=== PATIENT | female | born 1950 | race African-American/Black ===

== ENCOUNTER → 2017-06-27 | Outpatient (CLI) | payer MEDICARE, OTHER ==
[2017-06-27 10:15] LABS: ABSOLUTE BASOPHILS # (AUTO) 0.1 10^3/uL (0.0-0.2); ABSOLUTE EOSINOPHILS # (AUTO) 0.2 10^3/uL (0.0-0.6); ABSOLUTE LYMPHOCYTES (AUTO) 1.9 10^3/uL (0.5-4.7); ABSOLUTE MONOCYTES (AUTO) 0.6 10^3/uL (0.1-1.4); ABSOLUTE NEUT (AUTO) 2.5 10^3/uL (1.7-8.2); BASOPHILS % (AUTO) 1.2 % (0-2); EOSINOPHILS % (AUTO) 3.4 % (0-6); HEMATOCRIT 42.1 % (36.0-47.0); HEMOGLOBIN 14.2 g/dL (12.0-15.5); HGB HCT DIFFERENCE 0.5; MEAN CORPUSCULAR HGB CONC 33.7 g/dL (32.0-36.0); MEAN CORPUSCULAR VOLUME 83 fl (80-97); RED BLOOD COUNT 5.06 10^6/uL (3.72-5.28); RED CELL DISTRIBUTION WIDTH 13.6 % (11.5-14.0); SEGMENTED NEUTROPHILS % (AUTO) 47.4 % (42-78); WHITE BLOOD COUNT 5.4 10^3/uL (4.0-10.5)
[2017-06-27 10:24] LABS: APPEARANCE,URINE CLEAR; BILIRUBIN,URINE NEGATIVE (NEGATIVE); GLUCOSE, URINE NEGATIVE (NEGATIVE); KETONES,URINE NEGATIVE (NEGATIVE); LEUKOCYTE ESTERASE,URINE NEGATIVE (NEGATIVE); NITRITE,URINE NEGATIVE (NEGATIVE); PROTEIN,URINE NEGATIVE (NEGATIVE); URINE SPECIFIC GRAVITY 1.012; UROBILINOGEN,URINE NEGATIVE mg/dL (<2.0)
[2017-06-27 10:48] LABS: ALANINE AMINOTRANSFERASE 28 U/L (9-52); ALBUMIN 3.9 g/dL (3.5-5.0); ALKALINE PHOSPHATASE 135 U/L (38-126); ANION GAP 12 (5-19); ASPARTATE AMINO TRANSFERASE 20 U/L (14-36); BILIRUBIN,DIRECT 0.4 mg/dL (0.0-0.4); BILIRUBIN,TOTAL 0.9 mg/dL (0.2-1.3); BLOOD UREA NITROGEN 18 mg/dL (7-20); CALCIUM 9.4 mg/dL (8.4-10.2); CARBON DIOXIDE 29 mmol/L (22-30); CHLORIDE 102 mmol/L (98-107); CREATININE RESULT 0.99 mg/dL (0.52-1.25); Direct HDL 52 mg/dL (>40); GLUCOSE 109 mg/dL (75-110); SODIUM 143.3 mmol/L (137-145); TOTAL PROTEIN 7.8 g/dL (6.3-8.2); TRIGLYCERIDES 71 mg/dL (<150)
[2017-06-27 11:02] LABS: DIRECT LDL 147 mg/dL (<100)
[2017-06-27 11:30] LABS: THYROID STIMULATING HORMONE 1.31 uIU/mL (0.47-4.68)
== END ==
LOC: OD 09:06
PROVIDERS: ATTEND Internal Medicine
DX: I10 Essential (primary) hypertension (principal); E78.5 Hyperlipidemia, unspecified; R31.9 Hematuria, unspecified; G47.00 Insomnia, unspecified; N30.91 Cystitis, unspecified with hematuria
CPT/HCPCS: 36415; 80053; 80061; 81001; 84439; 84443; 84550; 85025; 87086

== ENCOUNTER → 2017-10-18 | Outpatient (CLI) | payer MEDICARE, OTHER ==
--- NOTE | 2017-10-18 14:24 | RADIOLOGY REPORT (SQ) ---
EXAM DESCRIPTION: CHEST PA/LATERAL COMPLETED DATE/TIME: 10/18/2017 2:04 pm REASON FOR STUDY: PNEUMOTHORAX, UNSPECIFIED COMPARISON: None. EXAM PARAMETERS: NUMBER OF VIEWS: two views TECHNIQUE: Digital Frontal and Lateral radiographic views of the chest acquired. RADIATION DOSE: NA LIMITATIONS: none FINDINGS: LUNGS AND PLEURA: No opacities, masses or pneumothorax. No pleural effusion. MEDIASTINUM AND HILAR STRUCTURES: No masses or contour abnormalities. HEART AND VASCULAR STRUCTURES: Heart normal size. No evidence for failure. BONES: No acute findings. HARDWARE: None in the chest. Hardware in the right shoulder. OTHER: No other significant finding. IMPRESSION: NO SIGNIFICANT RADIOGRAPHIC FINDING IN THE CHEST. TECHNICAL DOCUMENTATION: JOB ID: [id number] [employer]- All Rights Reserved Reading location - IP/workstation name: [email or web address]
== END ==
LOC: OD 13:41
PROVIDERS: ATTEND Surgery
DX: J93.9 Pneumothorax, unspecified (principal)
CPT/HCPCS: 71046

== ENCOUNTER → 2018-02-13 | Outpatient (CLI) | payer MEDICARE, OTHER ==
--- NOTE | 2018-02-13 13:01 | RADIOLOGY REPORT (SQ) ---
EXAM DESCRIPTION: CT ABD/PELVIS NO ORAL OR IV COMPLETED DATE/TIME: 02/13/2018 12:42 pm REASON FOR STUDY: CALCULUS OF KIDNEY N20.0 CALCULUS OF KIDNEY COMPARISON: CT abdomen pelvis 04/08/2016, 08/20/2014 TECHNIQUE: CT scan of the abdomen and pelvis performed without intravenous or oral contrast. Images reviewed with lung, soft tissue, and bone windows. Reconstructed coronal and sagittal MPR images revi ewed. All images stored on PACS. All CT scanners at this facility use dose modulation, iterative reconstruction, and/or weight based d osing when appropriate to reduce radiation dose to as low as reasonably achievable (ALARA). [facility]: Dose Right [facility]: CareDose [facility]: Dose Right [facility]: Teradose 4D [facility]: Smart Technologies RADIATION DOSE: CT Rad equipment meets quality standard of care and radiation dose reduction techniq ues were employed. CTDIvol: 15.8 mGy. DLP: 812 mGy-cm.mGy. LIMITATIONS: None. FINDINGS: LOWER CHEST: Small hiatal hernia. Lung bases are clear. NON-CONTRASTED LIVER, SPLEEN, ADRENALS: Evaluation limited by lack of IV contrast. No identified sign ificant masses. PANCREAS: No masses. No peripancreatic inflammatory changes. GALLBLADDER: No identified stones by CT criteria. No inflammatory changes to suggest cholecystitis. RIGHT KIDNEY AND URETER: No suspicious masses. Assessment limited by lack of IV contrast. No signif icant calcifications. No hydronephrosis or hydroureter. LEFT KIDNEY AND URETER: No suspicious masses. Assessment limited by lack of IV contrast. No signifi cant calcifications. No hydronephrosis or hydroureter. AORTA AND RETROPERITONEUM: No aneurysm. No retroperitoneal masses or adenopathy. BOWEL AND PERITONEAL CAVITY: No obvious masses or inflammatory changes. No free fluid. APPENDIX: Normal. PELVIS, BLADDER, AND ABDOMINAL WALL:No abnormal masses. No free fluid. Bladder normal. Post hysterec carly and pelvic lymph node dissection. BONES: Degenerative changes lower lumbar spine OTHER: No other significant finding. IMPRESSION: No CT evidence of obstructive urinary stones. COMMENT: Quality ID # 436: Final reports with documentation of one or more dose reduction techniques (e.g., Automated exposure control, adjustment of the mA and/or kV according to patient size, use of iterative reconstruction technique) TECHNICAL DOCUMENTATION: JOB ID: [id number] [employer]- All Rights Reserved Reading location - IP/workstation name: [email or web address]
== END ==
LOC: RAD 12:25
PROVIDERS: ATTEND Internal Medicine
DX: N20.0 Calculus of kidney (principal)
CPT/HCPCS: 74176

== ENCOUNTER → 2018-04-04 | Outpatient (CLI) | payer MEDICARE, OTHER ==
--- NOTE | 2018-04-23 13:35 | WOMENS IMAGING REPORT ---
EXAM DESCRIPTION: 3D DX MAMMO RIGHT UNILAT COMPLETED DATE/TIME: 04/06/2018 9:23 am REASON FOR STUDY: SCREENING MAMMO COMPARISON: None available TECHNIQUE: Standard craniocaudal and mediolateral oblique images of the the right breast recorded us ing digital acquisition and breast tomosynthesis. Post left mastectomy in 2011 LIMITATIONS: None. FINDINGS: BREAST: Right MASSES: No suspicious masses. CALCIFICATIONS: No new or suspicious calcifications. ARCHITECTURAL DISTORTION: Postsurgical changes from right breast reduction. DEVELOPING DENSITY: None. ASYMMETRY: None noted. OTHER: No other significant findings. Read with the assistance of CAD. .[facility] - R2 Cenova Version 1.3 .[facility] Imaging - R2 Cenova Version 1.3 .[facility] Imaging - R2 Cenova Version 2.4 .[facility] - R2 Cenova Version 2.4 .[facility] - R2 Metallurgical Technician Version 9.2 IMPRESSION: No mammographic/ tomosynthesis evidence for malignancy right breast BREAST DENSITY: b. There are scattered areas of fibroglandular density. BIRAD: 2 Benign findings. RECOMMENDATION: RECOMMENDED FOLLOW UP: Please continue right breast screening tomosynthesis in 2018 SPECIFIC INTERVENTION/IMAGING/CONSULTATION RECOMMENDED:No additional intervention/ imaging/consultati on needed at this time. COMMUNICATION:The negative/benign results were communicated to the patient. COMMENT: The patient has been notified of the results by letter per SA requirements. Additional no tification policies are in place for contacting patient with suspicious or incomplete findings. Quality ID #225: The [employer] recommends an annual screening mammogram for women aged 40 years or over. This facility utilizes a reminder system to ensure that all patients receive reminder letters, and/or direct phone calls for appointments. This includes reminders for routine scr eening mammograms, diagnostic mammograms, or other Breast Imaging Interventions when appropriate. Th is patient will be placed in the appropriate reminder system. The [employer] (ACR) has developed recommendations for screening MRI of the breast s in certain patient populations, to be used in conjunction with mammography. Breast MRI surveillanc e may be appropriate for women with more than 20% lifetime risk of developing breast cancer as deter mined by genetic testing, significant family history of the disease, or history of mantle radiation f or Hodgkins Disease. ACR Practice Guidelines 2008. DBT Technology DBT is a type of tomographic mammography. With conventional mammography, overlapping breast tissue ma y make lesions difficult to detect, even with good compression. DBT uses an x-ray tube that rotates a round the breast, taking images at different angles. These images are then combined to create thin sl ices of the breast that the radiologist can view as a 3D reconstruction. The tic unit can perform full-field digital mammograms (2D imaging); or DBT (3D imaging); or both, in a combination mode that quickly performs both the mammogram and the tomosynthesis scan while the breast is still compressed. PQRS 6045F: Fluoroscopic imaging is not utilized for breast tomosynthesis. TECHNICAL DOCUMENTATION: FINDING NUMBER: (1) ASSESSMENT: (1) JOB ID: [id number] [employer]- All Rights Reserved Reading location - IP/workstation name: [email or web address]
== END ==
LOC: WI 14:00
PROVIDERS: ATTEND Internal Medicine
DX: Z12.31 Encounter for screening mammogram for malignant neoplasm of breast (principal)
CPT/HCPCS: 77065; G0279

== ENCOUNTER → 2018-05-30 | Outpatient (CLI) | payer MEDICARE, OTHER ==
--- NOTE | 2018-05-30 14:29 | RADIOLOGY REPORT (SQ) ---
EXAM DESCRIPTION: CT ABD/PELVIS NO ORAL OR IV COMPLETED DATE/TIME: 05/30/2018 2:16 pm REASON FOR STUDY: HEMATURIA (R31.9) R31.9 HEMATURIA, UNSPECIFIED COMPARISON: 02/13/2018 TECHNIQUE: CT scan of the abdomen and pelvis performed without intravenous or oral contrast. Images reviewed with lung, soft tissue, and bone windows. Reconstructed coronal and sagittal MPR images revi ewed. All images stored on PACS. All CT scanners at this facility use dose modulation, iterative reconstruction, and/or weight based d osing when appropriate to reduce radiation dose to as low as reasonably achievable (ALARA). [facility]: Dose Right [facility]: CareDose [facility]: Dose Right [facility]: Teradose 4D [facility]: Smart Technologies RADIATION DOSE: CT Rad equipment meets quality standard of care and radiation dose reduction techniq ues were employed. CTDIvol: 15.8 mGy. DLP: 754 mGy-cm.mGy. LIMITATIONS: None. FINDINGS: LOWER CHEST: No significant findings. No nodules or infiltrates. NON-CONTRASTED LIVER, SPLEEN, ADRENALS: Evaluation limited by lack of IV contrast. No identified sign ificant masses. PANCREAS: No masses. No peripancreatic inflammatory changes. GALLBLADDER: No identified stones by CT criteria. No inflammatory changes to suggest cholecystitis. RIGHT KIDNEY AND URETER: No suspicious masses. Assessment limited by lack of IV contrast. No signif icant calcifications. No hydronephrosis or hydroureter. LEFT KIDNEY AND URETER: No suspicious masses. Assessment limited by lack of IV contrast. No signifi cant calcifications. No hydronephrosis or hydroureter. AORTA AND RETROPERITONEUM: No aneurysm. No retroperitoneal masses or adenopathy. BOWEL AND PERITONEAL CAVITY: No obvious masses or inflammatory changes. No free fluid. APPENDIX: Normal. PELVIS, BLADDER, AND ABDOMINAL WALL:Uterus is absent. Urinary bladder is normal. No masses. BONES: No significant findings. OTHER: No other significant finding. IMPRESSION: NO SIGNIFICANT OR ACUTE PROCESS IN THE ABDOMEN OR PELVIS. COMMENT: Quality ID # 436: Final reports with documentation of one or more dose reduction techniques (e.g., Automated exposure control, adjustment of the mA and/or kV according to patient size, use of iterative reconstruction technique) TECHNICAL DOCUMENTATION: JOB ID: [id number]- All Rights Reserved Reading location - IP/workstation name: [email or web address]
== END ==
LOC: RAD 14:01
PROVIDERS: ATTEND Internal Medicine
DX: R31.9 Hematuria, unspecified (principal)
CPT/HCPCS: 74176

== ENCOUNTER → 2018-09-28 | Outpatient (CLI) | payer MEDICARE, OTHER ==
[2018-09-28 10:01] LABS: ABSOLUTE EOSINOPHILS # (AUTO) 0.1 10^3/uL (0.0-0.6); ABSOLUTE LYMPHOCYTES (AUTO) 2.2 10^3/uL (0.5-4.7); ABSOLUTE MONOCYTES (AUTO) 0.7 10^3/uL (0.1-1.4); ABSOLUTE NEUT (AUTO) 2.5 10^3/uL (1.7-8.2); BASOPHILS % (AUTO) 0.6 % (0-2); EOSINOPHILS % (AUTO) 1.8 % (0-6); HEMATOCRIT 41.3 % (36.0-47.0); HEMOGLOBIN 13.8 g/dL (12.0-15.5); LYMPHOCYTES % (AUTO) 39.9 % (13-45); MEAN CORPUSCULAR HEMOGLOBIN 27.9 pg (27.0-33.4); MEAN CORPUSCULAR HGB CONC 33.5 g/dL (32.0-36.0); MEAN CORPUSCULAR VOLUME 83 fl (80-97); MONOCYTES % (AUTO) 12.4 % (3-13); PLATELET COUNT 344 10^3/uL (150-450); RED BLOOD COUNT 4.96 10^6/uL (3.72-5.28); RED CELL DISTRIBUTION WIDTH 13.7 % (11.5-14.0); SEGMENTED NEUTROPHILS % (AUTO) 45.3 % (42-78); TOTAL CELLS COUNTED % (AUTO) 100 %; WHITE BLOOD COUNT 5.6 10^3/uL (4.0-10.5)
[2018-09-28 10:12] LABS: AMORPHOUS SEDIMENT,URINE TRACE /HPF; APPEARANCE,URINE CLOUDY; BILIRUBIN,URINE NEGATIVE (NEGATIVE); COLOR,URINE YELLOW; GLUCOSE, URINE NEGATIVE (NEGATIVE); KETONES,URINE NEGATIVE (NEGATIVE); LEUKOCYTE ESTERASE,URINE LARGE (NEGATIVE); NITRITE,URINE POSITIVE (NEGATIVE); PROTEIN,URINE NEGATIVE (NEGATIVE); URINE SPECIFIC GRAVITY 1.016; UROBILINOGEN,URINE NEGATIVE mg/dL (<2.0)
[2018-09-28 10:20] LABS: ALANINE AMINOTRANSFERASE 23 U/L (9-52); ALBUMIN 3.9 g/dL (3.5-5.0); ALKALINE PHOSPHATASE 161 U/L (38-126); ANION GAP 10 (5-19); ASPARTATE AMINO TRANSFERASE 16 U/L (14-36); BILIRUBIN,DIRECT 0.2 mg/dL (0.0-0.4); BILIRUBIN,TOTAL 0.6 mg/dL (0.2-1.3); BLOOD UREA NITROGEN 18 mg/dL (7-20); CALCIUM 9.6 mg/dL (8.4-10.2); CARBON DIOXIDE 30 mmol/L (22-30); CHLORIDE 102 mmol/L (98-107); CHOLESTEROL 248.33 mg/dL (0-200); GLUCOSE 116 mg/dL (75-110); POTASSIUM 4.4 mmol/L (3.6-5.0); SODIUM 141.6 mmol/L (137-145); TOTAL PROTEIN 7.9 g/dL (6.3-8.2); TRIGLYCERIDES 70 mg/dL (<150); URIC ACID 6.8 mg/dL (2.5-7.5)
[2018-09-28 10:31] LABS: DIRECT LDL 183 mg/dL (<100)
[2018-09-28 10:36] LABS: FREE T4 (FREE THYROXINE) 1.3 ng/dL (0.78-2.19)
[2018-09-28 10:50] LABS: THYROID STIMULATING HORMONE 0.92 uIU/mL (0.47-4.68)
== END ==
LOC: OD 09:11
PROVIDERS: ATTEND Internal Medicine
DX: I10 Essential (primary) hypertension (principal); Z13.1 Encounter for screening for diabetes mellitus; R73.09 Other abnormal glucose
CPT/HCPCS: 36415; 80053; 80061; 81001; 83036; 84439; 84443; 84550; 85025

== ENCOUNTER → 2019-05-02 | Outpatient (CLI) | payer MEDICARE, OTHER ==
--- NOTE | 2019-05-02 14:17 | WOMENS IMAGING REPORT ---
EXAM DESCRIPTION: 3D SCREENING MAMMO RIGHT COMPLETED DATE/TIME: 05/02/2019 7:50 am REASON FOR STUDY: Z12.31 ENCOUNTER FOR SCREENING MAMMOGRAM FOR MALIGNANT NEOPLASM OF BREAST Z12.31 ENCNTR SCREEN MAMMOGRAM FOR MALIGNANT NEOPLASM OF RAYO COMPARISON: 04/04/2018 EXAM PARAMETERS: Standard craniocaudal and mediolateral oblique views of the breast recorded using digital acquisition and breast tomosynthesis. Read with the assistance of CAD. .[facility] - [employer] Grinder Rough Version 9.2 LIMITATIONS: None. FINDINGS: BREAST: right Findings present which are benign by mammographic criteria. No suspicious masses, calcifications or a rchitectural distortion. Pertinent benign findings: Postsurgical changes from right breast lift. Benign mammographic findings may include one or more of the following: Smooth masses, popcorn/rim/co arse calcifications, asymmetries, post-procedure changes, and lesions with long-standing stability. IMPRESSION: BENIGN FINDINGS. BIRADS 2. BREAST DENSITY: b. There are scattered areas of fibroglandular density. BIRAD: ASSESSMENT: 2 Benign Finding(s) RECOMMENDATION: RECOMMENDATION: ROUTINE SCREENING. COMMENT: The patient has been notified of the results by letter per SA requirements. Additional no tification policies are in place for contacting patient with suspicious or incomplete findings. Quality ID #225: The [employer] recommends an annual screening mammogram for women aged 40 years or over. This facility utilizes a reminder system to ensure that all patients receive reminder letters, and/or direct phone calls for appointments. This includes reminders for routine scr eening mammograms, diagnostic mammograms, or other Breast Imaging Interventions when appropriate. Th is patient will be placed in the appropriate reminder system. TECHNICAL DOCUMENTATION: FINDING NUMBER: (1) ASSESSMENT: (1) JOB ID: [id number] [employer]- All Rights Reserved Reading location - IP/workstation name: [email or web address]
== END ==
LOC: WI 07:22
PROVIDERS: ATTEND Specialist
DX: Z12.31 Encounter for screening mammogram for malignant neoplasm of breast (principal); Z85.3 Personal history of malignant neoplasm of breast

== ENCOUNTER → 2019-10-03 | Outpatient (CLI) | payer MEDICARE, OTHER ==
[~2019-10-03] MED LIST: AMINOPHYLLINE INJ/PF 250 MG/10 ML SDV IV ONE; REGADENOSON INJ 0.4 MG/5 ML DISP.SYRIN IV ONE
--- NOTE | 2019-10-04 10:18 | DRAGON STRESS TEST REPORT ---
INTRAVENOUS LEXISCAN CARDIOLITE STRESS TEST USING SINGLE PHOTON EMMISION COMPUTERIZED TOMOGRAPHIC. DATE OF PROCEDURE: October 03, 2019. INDICATION : Chest pain CARDIAC RISK FACTORS: Hypertension, dyslipidemia, family history of CAD RESTING EKG: sinus rhythm without any baseline ST-T wave changes changes. STRESS EKG: No significant ST segment changes noted with LexiScan bolus REASON FOR TERMINATION: Protocol. PROCEDURE REPORT: Baseline heart rate 84 beats per minute with blood pressure of 102/62. Patient had no significant complaints. Patient was bolused with Lexiscan 0.4 mg intravenously followed by saline bolus. Heart rate at 2 minutes post bolus 104 with a blood pressure of 101/60. 3 minutes post bolus heart rate 90 with blood pressure of 104/64. No significant EKG changes were noted. Patient had no significant complaints during the procedure or postprocedure. CONCLUSIONS: Normal EKG and hemodynamic response to IV LexiScan. NUCLEAR DATA: At rest the patient was given 13.66 millicuries of technetium 99 sestamibi injected intravenously. As per protocol rest gated SPECT images were obtained. On day of stress test, the patient was given intravenous LexiScan at a dose of 0.4 mg in 5 mL intravenously, followed by flush with normal saline. Subsequently the stress dose of 43.2 millicuries of technetium 99 sestamibi was injected intravenously. As per protocol stress gated images were obtained. NUCLEAR INTERPRETATION: Both raw and processed data were used for interpretation. Visual, qualitative, computer-generated quantitative data was used. There was good myocardial uptake of technetium compound. Motion artifact and soft tissue attenuations were noted. Increased visceral uptake was noted. No definitive areas of transient perfusion defect noted, except for borderline decreased uptake in the inferior wall felt to be related to visceral subtraction artifact. However cannot rule out entirely an area of mild ischemia involving the basal and mid inferior wall. No definitive areas of fixed perfusion defect or scars noted. EKG gated imaging showed LV EF at 63 %, rest and stress gated EF similar visually. T. I D. ratio was 1.03. Lung heart ratio noted to be within normal limits 0.32. No significant extracardiac and abnormal radiotracer activities were noted. RV free wall uptake was noted to be WNL. IMPRESSION: Also refer to comments under nuclear interpretation. Also test results needs to be interpreted in the context of pretest probability. 1. No definitive areas of transient perfusion defect noted, except for borderline decreased uptake in the inferior wall felt to be related to visceral subtraction artifact. However cannot rule out entirely an area of mild ischemia involving the basal and mid inferior wall. Clinical correlation is requested. 2. There is no definitive scintigraphic evidence of myocardial infarction/scar. 3. EKG gated imaging shows left ventricular ejection fraction of approx. 63 %. 4. Clinical correlation requested as worse disease and or balanced ischemia could be missed. In approximately 10% of the cases Lexiscan may not cause adequate vasodilatory stress. RECOMMENDATIONS: Aggressive risk factor modification and medical management. Further evaluation may be needed if continued symptoms or other high risk indicators are noted on clinical evaluation. May consider stress echo if clinically indicated. Close cardiology follow-up is also recommended. Clinical correlation with echocardiogram derived ejection fraction. Inability to exercise by itself can lead to increased cardiovascular event risks. Consider cardiology consultation and or follow-up if clinically indicated. I am available for cardiology evaluation and consultation if requested by the salt maker, unless patient already has a turbine room attendant. Dr. Ryan Dobbins. MRCP Board certified in cardiology and sleep medicine. Board certified in nuclear cardiology, adult echocardiography. [place]
== END ==
LOC: RAD 06:37
PROVIDERS: ATTEND Internal Medicine
DX: R07.9 Chest pain, unspecified (principal)
CPT/HCPCS: 93017; 78452; A9500; J2785; J0280; Q9969

== ENCOUNTER 2020-08-12 14:38 | Inpatient (IN) | payer MEDICARE, OTHER ==
--- NOTE | 2020-08-12 15:08 | ER Document Report ---
ED Medical Screen (RME) - General Chief Complaint: Abnormal Lab Results Stated Complaint: ABNORMAL LABS Time Seen by Provider: 08/12/20 15:03 Primary Care Provider: MIRYAM AGARWAL MD [Primary Care Provider] - Follow up as needed Notes: Patient presents complaining of suprapubic tenderness with flank pain yesterday. Patient states she had an outpatient CT scan and was advised that her renal function was abnormal and her doctor advised her to come here for further evaluation. Patient denies any fever. Patient states she has had a history of frequent UTIs in the past as well as hypertension and previous kidney stones. I have greeted and performed a rapid initial assessment of this patient. A comprehensive ED assessment and evaluation of the patient, analysis of test results and completion of the medical decision making process will be conducted by additional ED providers. TRAVEL OUTSIDE OF THE [place] IN LAST 30 DAYS: No Physical Exam - Vital signs Vitals: Temp Pulse Resp BP Pulse Ox 98.0 F 69 20 159/76 H 99 08/12/20 15:01 08/12/20 15:01 08/12/20 15:01 08/12/20 15:01 08/12/20 15:01 - General General appearance: Appears well, Alert Notes: Suprapubic tenderness Course - Vital Signs Vital signs: Temp Pulse Resp BP Pulse Ox 98.0 F 69 20 159/76 H 99 08/12/20 15:01 08/12/20 15:01 08/12/20 15:01 08/12/20 15:01 08/12/20 15:01 Doctor's Discharge - Discharge Referrals: MIRYAM AGARWAL MD [Primary Care Provider] - Follow up as needed
[2020-08-12 16:00] LABS: ABSOLUTE BASOPHILS # (AUTO) 0.1 10^3/uL (0.0-0.2); ABSOLUTE EOSINOPHILS # (AUTO) 0.3 10^3/uL (0.0-0.6); ABSOLUTE LYMPHOCYTES (AUTO) 2.3 10^3/uL (0.5-4.7); ABSOLUTE MONOCYTES (AUTO) 0.8 10^3/uL (0.1-1.4); ABSOLUTE NEUT (AUTO) 3.7 10^3/uL (1.7-8.2); BASOPHILS % (AUTO) 1.3 % (0-2); EOSINOPHILS % (AUTO) 3.7 % (0-6); HEMATOCRIT 30.5 % (36.0-47.0); HEMOGLOBIN 10.1 g/dL (12.0-15.5); MEAN CORPUSCULAR HEMOGLOBIN 27.7 pg (27.0-33.4); MEAN CORPUSCULAR HGB CONC 33.2 g/dL (32.0-36.0); MEAN CORPUSCULAR VOLUME 83 fl (80-97); MONOCYTES % (AUTO) 10.7 % (3-13); PLATELET COUNT 376 10^3/uL (150-450); RED BLOOD COUNT 3.65 10^6/uL (3.72-5.28); RED CELL DISTRIBUTION WIDTH 14.2 % (11.5-14.0); SEGMENTED NEUTROPHILS % (AUTO) 52.3 % (42-78); TOTAL CELLS COUNTED % (AUTO) 100 %; WHITE BLOOD COUNT 7.1 10^3/uL (4.0-10.5)
[2020-08-12 16:49] LABS: APPEARANCE,URINE CLEAR; BILIRUBIN,URINE NEGATIVE (NEGATIVE); COLOR,URINE COLORLESS; GLUCOSE, URINE NEGATIVE (NEGATIVE); KETONES,URINE NEGATIVE (NEGATIVE); LEUKOCYTE ESTERASE,URINE TRACE (NEGATIVE); NITRITE,URINE NEGATIVE (NEGATIVE); PROTEIN,URINE NEGATIVE (NEGATIVE); URINE SPECIFIC GRAVITY 1.005; UROBILINOGEN,URINE NEGATIVE mg/dL (<2.0)
[2020-08-12 18:36] LABS: ALBUMIN 3.7 g/dL (3.5-5.0); ALKALINE PHOSPHATASE 119 U/L (38-126); ANION GAP 8 (5-19); ASPARTATE AMINO TRANSFERASE 22 U/L (14-36); BILIRUBIN,DIRECT 0.1 mg/dL (0.0-0.4); BILIRUBIN,TOTAL 0.4 mg/dL (0.2-1.3); BLOOD UREA NITROGEN 50 mg/dL (7-20); CALCIUM 8.8 mg/dL (8.4-10.2); CARBON DIOXIDE 22 mmol/L (22-30); CHLORIDE 110 mmol/L (98-107); GLUCOSE 91 mg/dL (75-110); POTASSIUM 4.7 mmol/L (3.6-5.0); TOTAL PROTEIN 7.8 g/dL (6.3-8.2)
--- NOTE | 2020-08-12 18:40 | ER Document Report ---
ED General - General Chief Complaint: Abnormal Lab Results Stated Complaint: ABNORMAL LABS Time Seen by Provider: 08/12/20 15:03 Primary Care Provider: MIRYAM AGARWAL MD [Primary Care Provider] - Follow up as needed TRAVEL OUTSIDE OF THE [place] IN LAST 30 DAYS: No - HPI Notes: Patient is a 70-year-old female who presents emergency department for evaluation of abnormal labs and CT. She has a history of frequent urinary tract infections. She just recently finished a course of antibiotics. She has right lower pelvic pain as well as pain in her lower back. Is been ongoing for the last several days. She saw her primary care provider yesterday who ordered labs and a CT. She was told she had an abnormal CT scan and abnormal kidney function so she was sent here for further evaluation. The patient states that every time she stands she urinates. She feels like she empties her bladder, but states that at any time she can always "pee more." No fevers or chills. She has occasional nausea but no vomiting. Normal bowel movements. She also developed edema over the last 48 hours. She states her hands were swollen but they seem to have improved. Her leg edema persists. - Related Data Allergies/Adverse Reactions: acetaminophen [From Percocet] Allergy (Verified 08/12/20 15:13) codeine Allergy (Verified 08/12/20 15:13) oxycodone Allergy (Verified 08/12/20 15:13) IVP dye Allergy (Uncoded 08/12/20 15:13) Past Medical History - General Information source: Patient - Social History Smoking Status: Former Smoker Chew tobacco use (# tins/day): No Frequency of alcohol use: None Drug Abuse: None Family History: Reviewed & Not Pertinent - Past Medical History Cardiac Medical History: Reports: Hx Hypercholesterolemia, Hx Hypertension Renal/ Medical History: Reports: Other - Frequent UTIs Malignancy Medical History: Reports: Hx Breast Cancer, Hx Cervical Cancer Past Surgical History: Reports: Hx Hysterectomy - With bilateral oophorectomy, Hx Mastectomy Review of Systems - Review of Systems Constitutional: No symptoms reported EENT: No symptoms reported Cardiovascular: No symptoms reported Respiratory: No symptoms reported Gastrointestinal: See HPI Genitourinary: See HPI Female Genitourinary: No symptoms reported Musculoskeletal: See HPI Skin: No symptoms reported Neurological/Psychological: No symptoms reported Physical Exam - Vital signs Vitals: Temp Pulse Resp BP Pulse Ox 98.0 F 69 20 159/76 H 99 08/12/20 15:01 08/12/20 15:01 08/12/20 15:01 08/12/20 15:01 08/12/20 15:01 - Notes Notes: Vital signs reviewed, please refer to chart. Head is normocephalic, atraumatic. Pupils equal round, reactive to light. Neck is supple without meningismus. Heart is regular rate and rhythm. Lungs are clear to auscultation bilaterally. Abdomen is soft, mildly tender in the right pelvis without rebound or guarding, normoactive bowel sounds throughout. CVA tenderness noted bilaterally. Extremities without cyanosis, clubbing. 2+ pitting pretibial edema noted. Posterior calves are nontender. Peripheral pulses are equal. Skin is warm and dry. Patient is awake, alert, neurological exam is nonfocal. Course - Re-evaluation Re-evalutation: 08/12/20 18:39 Patient presents emergency department for evaluation. She laboratory vesication is ordered. Her urinalysis fails to reveal any obvious signs of infection. She is mildly anemic. CT scan was evaluated and reviewed, I did show significant bilateral hydronephrosis and hydroureter with dilation of the bladder. I do suspect that this patient is having some episodes of overflow incontinence. A post void residual bladder scan was ordered and she had over 500 cc of urine in the bladder. Strong catheter is ordered. Still awaiting chemistries, she is stable at this time, we will continue to monitor. 08/12/20 18:44 Patient's creatinine came back at 4.5. She has no baseline renal insufficiency. I suspect that this is all obstructive. Strong catheter ordered. I spoke with Dr. Agarwal, he will admit the patient for further care. - Vital Signs Vital signs: Temp Pulse Resp BP Pulse Ox 98.0 F 69 20 159/76 H 99 08/12/20 15:01 08/12/20 15:01 08/12/20 15:01 08/12/20 15:01 08/12/20 15:01 - Laboratory Results Result Diagrams: 08/12/20 15:41 08/12/20 17:21 Laboratory Results Interpreted: 08/12/20 08/12/20 08/12/20 12:10 15:41 17:21 RBC 3.65 L Hgb 10.1 L Hct 30.5 L RDW 14.2 H Chloride 110 H BUN 50 H Creatinine 4.51 H Est GFR ( Amer) 12 L Est GFR (MDRD) Non-Af 10 L Urine Blood SMALL H Ur Leukocyte Esterase TRACE H Critical Laboratory Results Reviewed: No Critical Results - Radiology Results Critical Radiology Results Reviewed: No Critical Results Discharge - Discharge Clinical Impression: Urinary retention with incomplete bladder emptying Acute renal failure Qualifiers: Acute renal failure type: unspecified Qualified Code(s): N17.9 - Acute kidney failure, unspecified Condition: Stable Disposition: ADMITTED INPATIENT Admitting Provider: Ramona Unit Admitted: Telemetry Referrals: MIRYAM AGARWAL MD [Primary Care Provider] - Follow up as needed
[2020-08-12] MEDS ORDERED: TEMAZEPAM 7.5 MG CAPSULE PO PRN (20:39)
[2020-08-12] MEDS ORDERED: OXYBUTYNIN CHLORIDE 5 MG PO SCH (20:45)
[2020-08-12] MEDS ORDERED: TELMISARTAN 40 MG PO SCH (20:45)
--- NOTE | 2020-08-12 20:46 | PDOC H&P ---
History of Present Illness Admission Date/PCP: 08/12/20 18:49 MIRYAM AGARWAL MD History of Present Illness: HOLA ADAMS is a 70 year old female, She has a history of recurrent UTI, she came to the office today for evaluation of lower abdominal pain, retention of fluids, urinary incontinence without sensory awareness. She was just treated for E. coli ESBL UTI with Bactrim couple of days ago. I requested for CT scan of the abdomen with contrast, serum creatinine was checked before the CT scan because of the contrast, serum creatinine was 4. The CAT scan was done and patient was referred to the ER. The CAT scan showed bilateral hydronephrosis and hydroureter distended urinary bladder.She has a history of cervical cancer that was treated with radiation therapy. 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 Past Medical History Cardiac Medical History: Reports: Hyperlipidema, Hypertension Renal/ Medical History: Reports: Other - Frequent UTIs Malignancy Medical History: Reports: Breast Cancer, Cervical Cancer Past Surgical History Past Surgical History: Reports: Hysterectomy - With bilateral oophorectomy, Mastectomy Social History Smoking Status: Former Smoker Electronic Cigarette use?: No Family History Family History: Reviewed & Not Pertinent Parental Family History Reviewed: Yes Children Family History Reviewed: Yes Sibling(s) Family History Reviewed.: Yes Medication/Allergy Home Medications: Aspirin [Ecotrin 81 mg EC Tablet] 81 mg PO DAILY 08/12/20 Docusate Sodium [Colace 100 mg Capsule] 100 mg PO QPM 08/12/20 Estrogens,Conjugated [Premarin Vaginal Cream (0.625 mg/gm) 30 gm] 1 applic PV QHS 08/12/20 Ezetimibe [Zetia 10 mg Tablet] 10 mg PO DAILY 08/12/20 Metoprolol Succinate [Toprol Xl 50 mg Tab.sr] 50 mg PO DAILY 08/12/20 Oxybutynin Chloride [Oxybutynin Chloride ER] 5 mg PO DAILY 08/12/20 Pantoprazole Sodium [Protonix [address] Tablet] 40 mg PO QAM 08/12/20 Telmisartan 40 mg PO DAILY 08/12/20 Allergies/Adverse Reactions: acetaminophen [From Percocet] Allergy (Verified 08/12/20 15:13) codeine Allergy (Verified 08/12/20 15:13) oxycodone Allergy (Verified 08/12/20 15:13) IVP dye Allergy (Uncoded 08/12/20 15:13) Review of Systems Constitutional: ABSENT: chills, fever(s), headache(s), weight gain, weight loss Eyes: ABSENT: visual disturbances Ears: ABSENT: hearing changes Cardiovascular: ABSENT: chest pain, dyspnea on exertion, edema, orthropnea, palpitations Respiratory: ABSENT: cough, hemoptysis Gastrointestinal: PRESENT: abdominal pain, bloating Genitourinary: ABSENT: dysuria, hematuria Musculoskeletal: ABSENT: joint swelling Integumentary: ABSENT: rash, wounds Neurological: ABSENT: abnormal gait, abnormal speech, confusion, dizziness, focal weakness, syncope Psychiatric: ABSENT: anxiety, depression, homidical ideation, suicidal ideation Endocrine: ABSENT: cold intolerance, heat intolerance, menstrual abnormalities, polydipsia, polyuria Hematologic/Lymphatic: ABSENT: easy bleeding, easy bruising, lymphadenopathy Physical Exam Vital Signs: Temp Pulse Resp BP Pulse Ox 98.0 F 69 20 159/76 H 99 08/12/20 15:01 08/12/20 15:01 08/12/20 15:01 08/12/20 15:01 08/12/20 15:01 Intake & Output 08/11/20 08/12/20 08/13/20 06:59 06:59 06:59 Weight 94.6 kg General appearance: PRESENT: no acute distress, well-developed, well-nourished Head exam: PRESENT: atraumatic, normocephalic Eye exam: PRESENT: conjunctiva pink, EOMI, PERRLA Ear exam: PRESENT: normal external ear exam Mouth exam: PRESENT: moist, tongue midline Neck exam: PRESENT: full ROM Respiratory exam: PRESENT: clear to auscultation kuldip Cardiovascular exam: PRESENT: RRR, +S1, +S2 Pulses: PRESENT: normal dorsalis pedis pul, +2 pedal pulses bilateral Vascular exam: PRESENT: normal capillary refill GI/Abdominal exam: PRESENT: normal bowel sounds, soft Rectal exam: PRESENT: deferred Neurological exam: PRESENT: alert, awake, oriented to person, oriented to place, oriented to time, oriented to situation, CN II-XII grossly intact Psychiatric exam: PRESENT: appropriate affect, normal mood Skin exam: PRESENT: dry, intact, warm Results Laboratory Results: 08/12/20 15:41 08/12/20 17:21 08/12/20 08/12/20 08/12/20 12:10 15:41 15:41 WBC 7.1 RBC 3.65 L Hgb 10.1 L Hct 30.5 L MCV 83 MCH 27.7 MCHC 33.2 RDW 14.2 H Plt Count 376 Seg Neutrophils % 52.3 Sodium Cancelled Potassium Cancelled Chloride Cancelled Carbon Dioxide Cancelled Anion Gap Cancelled BUN Cancelled Creatinine Cancelled Est GFR ( Amer) Cancelled Est GFR (Non-Af Amer) Cancelled Glucose Cancelled Calcium Cancelled Total Bilirubin Cancelled AST Cancelled Alkaline Phosphatase Cancelled Total Protein Cancelled Albumin Cancelled Urine Color COLORLESS Urine Appearance CLEAR Urine pH 6.0 Ur Specific [place] 1.005 Urine Protein NEGATIVE Urine Glucose (UA) NEGATIVE Urine Ketones NEGATIVE Urine Blood SMALL H Urine Nitrite NEGATIVE Ur Leukocyte Esterase TRACE H Urine WBC (Auto) 6 Urine RBC (Auto) 0 08/12/20 17:21 WBC RBC Hgb Hct MCV MCH MCHC RDW Plt Count Seg Neutrophils % Sodium 140.2 Potassium 4.7 Chloride 110 H Carbon Dioxide 22 Anion Gap 8 BUN 50 H Creatinine 4.51 H Est GFR ( Amer) 12 L Est GFR (Non-Af Amer) Glucose 91 Calcium 8.8 Total Bilirubin 0.4 AST 22 Alkaline Phosphatase 119 Total Protein 7.8 Albumin 3.7 Urine Color Urine Appearance Urine pH Ur Specific [place] Urine Protein Urine Glucose (UA) Urine Ketones Urine Blood Urine Nitrite Ur Leukocyte Esterase Urine WBC (Auto) Urine RBC (Auto) Assessment & Plan - Diagnosis (1) Acute kidney injury Is this a current diagnosis for this admission?: Yes Plan: She has post renal azotemia due to obstructive uropathy, a Strong catheter will be inserted, she will be treated with IV fluid, the serum creatinine will monitor closely. The urinalysis is clean there is no evidence at this time of UTI based on the dipstick, she was just recently treated for E. coli ESBL UTI,Outpatient (2) Bilateral hydronephrosis Is this a current diagnosis for this admission?: Yes Plan: She has bilateral hydronephrosis/hydroureter most likely secondary to atonic urinary bladder. Patient will require indwelling Strong catheter (3) Atonic urinary bladder Is this a current diagnosis for this admission?: Yes Plan: She may benefit from Urecholine, a cholinergic muscarinic agonist start 10 mg 3 times a day (4) Urinary retention with incomplete bladder emptying Is this a current diagnosis for this admission?: Yes - Time Time Spent: Greater than 70 Minutes Medications reviewed and adjusted accordingly: Yes Anticipated Discharge Disposition: Home, Self Care Anticipated Discharge Timeframe: within 72 hours - Inpatient Certification Based on my medical assessment, after consideration of the patient's comorbidities, presenting symptoms, or acuity I expect that the services needed warrant INPATIENT care.: Yes I certify that my determination is in accordance with my understanding of Medicare's requirements for reasonable and necessary INPATIENT services [42 CFR 412.3e].: Yes
[2020-08-12] MEDS: OXYBUTYNIN CHLORIDE 5 MG TABLET PO SCH (22:20)
[2020-08-12] MEDS: ACETAMINOPHEN 325 MG TABLET PO PRN (22:20)
[2020-08-12] MEDS: LOSARTAN POTASSIUM 50 MG TABLET PO SCH (22:20)
[2020-08-12] MEDS: EZETIMIBE 10 MG TABLET PO SCH (22:20)
[2020-08-12] MEDS: METOPROLOL SUCCINATE 50 MG TAB.SR.24H PO SCH (22:20)
[2020-08-12] MEDS: HEPARIN SOD (PORCINE) 5,000 UNIT/ML 1 ML VIAL SUBCUT SCH (22:21)
[2020-08-12] MEDS: NORMAL SALINE 1000 ML 1,000 ML IV PRN (22:22)
[2020-08-12 23:21] LABS: FIBRINOGEN 469 mg/dL (209-497); INTERNATIONAL RATION (INR) 1.13; PARTIAL THROMBOPLASTIN TIME 31.5 SEC (23.5-35.8); PROTHROMBIN TIME 14.7 SEC (11.4-15.4)
[2020-08-12] MEDS: ESTROGENS,CONJUGATED 0.625 MG/1 GM 30 GM TUBE PV SCH (23:21)
[2020-08-12 23:24] LABS: D-DIMER 0.66 ug/mL (0.00-0.50)
[2020-08-13] MEDS: HEPARIN SOD (PORCINE) 5,000 UNIT/ML 1 ML VIAL SUBCUT SCH ×3 (05:10→23:10)
[2020-08-13] MEDS: ACETAMINOPHEN 325 MG TABLET PO PRN (05:10)
[2020-08-13 05:25] LABS: ABSOLUTE EOSINOPHILS # (AUTO) 0.2 10^3/uL (0.0-0.6); ABSOLUTE LYMPHOCYTES (AUTO) 2.3 10^3/uL (0.5-4.7); ABSOLUTE MONOCYTES (AUTO) 0.8 10^3/uL (0.1-1.4); ABSOLUTE NEUT (AUTO) 2.9 10^3/uL (1.7-8.2); BASOPHILS % (AUTO) 0.4 % (0-2); EOSINOPHILS % (AUTO) 3.9 % (0-6); HEMATOCRIT 28.2 % (36.0-47.0); HEMOGLOBIN 9.4 g/dL (12.0-15.5); LYMPHOCYTES % (AUTO) 36.3 % (13-45); MEAN CORPUSCULAR HEMOGLOBIN 27.5 pg (27.0-33.4); MEAN CORPUSCULAR HGB CONC 33.2 g/dL (32.0-36.0); MEAN CORPUSCULAR VOLUME 83 fl (80-97); MONOCYTES % (AUTO) 12.5 % (3-13); PLATELET COUNT 320 10^3/uL (150-450); RED BLOOD COUNT 3.41 10^6/uL (3.72-5.28); SEGMENTED NEUTROPHILS % (AUTO) 46.9 % (42-78); TOTAL CELLS COUNTED % (AUTO) 100 %; WHITE BLOOD COUNT 6.3 10^3/uL (4.0-10.5)
[2020-08-13 06:03] LABS: ALBUMIN 3.1 g/dL (3.5-5.0); ALKALINE PHOSPHATASE 89 U/L (38-126); ANION GAP 6 (5-19); ASPARTATE AMINO TRANSFERASE 20 U/L (14-36); BILIRUBIN,DIRECT 0.1 mg/dL (0.0-0.4); BILIRUBIN,TOTAL 0.4 mg/dL (0.2-1.3); BLOOD UREA NITROGEN 43 mg/dL (7-20); CALCIUM 8.6 mg/dL (8.4-10.2); CARBON DIOXIDE 22 mmol/L (22-30); CHLORIDE 114 mmol/L (98-107); CREATINE KINASE 45 U/L (30-135); GLUCOSE 78 mg/dL (75-110); POTASSIUM 4.3 mmol/L (3.6-5.0); TOTAL PROTEIN 6.9 g/dL (6.3-8.2)
[2020-08-13] MEDS: OXYBUTYNIN CHLORIDE 5 MG TABLET PO SCH (10:22)
[2020-08-13] MEDS: LOSARTAN POTASSIUM 50 MG TABLET PO SCH (10:22)
[2020-08-13] MEDS: EZETIMIBE 10 MG TABLET PO SCH ×2 (10:22→23:11)
[2020-08-13] MEDS: METOPROLOL SUCCINATE 50 MG TAB.SR.24H PO SCH (10:22)
[2020-08-13] MEDS: NORMAL SALINE 1000 ML 1,000 ML IV PRN ×2 (10:25→18:26)
--- NOTE | 2020-08-13 13:22 | PDOC PROGRESS REPORT ---
Subjective Date:: 08/13/20 Subjective:: Patient was admitted yesterday, she was admitted for acute kidney injury due to obstructive uropathy secondary to atonic urinary bladder contraction. The serum creatinine is improved some this morning compared to yesterday when she was admitted Reason For Visit: ACUTE RENAL FAILURE Physical Exam Vital Signs: Temp Pulse Resp BP Pulse Ox 98.0 F 61 18 146/85 H 100 08/13/20 12:00 08/13/20 12:00 08/13/20 12:00 08/13/20 12:00 08/13/20 12:00 Intake & Output 08/12/20 08/13/20 08/14/20 06:59 06:59 06:59 Intake Total 1900 466 Output Total 3555 1600 Balance -1655 -1134 Weight 95.2 kg General appearance: PRESENT: no acute distress Eye exam: PRESENT: PERRLA Respiratory exam: PRESENT: clear to auscultation kuldip Cardiovascular exam: PRESENT: +S1, +S2 GI/Abdominal exam: PRESENT: soft Neurological exam: PRESENT: alert, CN II-XII grossly intact Results Laboratory Results: 08/13/20 04:36 08/13/20 04:36 08/12/20 08/12/20 08/12/20 12:10 15:41 15:41 WBC 7.1 RBC 3.65 L Hgb 10.1 L Hct 30.5 L MCV 83 MCH 27.7 MCHC 33.2 RDW 14.2 H Plt Count 376 Seg Neutrophils % 52.3 Sodium Cancelled Potassium Cancelled Chloride Cancelled Carbon Dioxide Cancelled Anion Gap Cancelled BUN Cancelled Creatinine Cancelled Est GFR ( Amer) Cancelled Est GFR (Non-Af Amer) Cancelled Glucose Cancelled Calcium Cancelled Ferritin Total Bilirubin Cancelled AST Cancelled Alkaline Phosphatase Cancelled C-Reactive Protein Total Protein Cancelled Albumin Cancelled Urine Color COLORLESS Urine Appearance CLEAR Urine pH 6.0 Ur Specific [place] 1.005 Urine Protein NEGATIVE Urine Glucose (UA) NEGATIVE Urine Ketones NEGATIVE Urine Blood SMALL H Urine Nitrite NEGATIVE Ur Leukocyte Esterase TRACE H Urine WBC (Auto) 6 Urine RBC (Auto) 0 08/12/20 08/12/20 08/13/20 17:21 21:36 04:36 WBC 6.3 RBC 3.41 L Hgb 9.4 L Hct 28.2 L MCV 83 MCH 27.5 MCHC 33.2 RDW 14.0 Plt Count 320 Seg Neutrophils % 46.9 Sodium 140.2 Potassium 4.7 Chloride 110 H Carbon Dioxide 22 Anion Gap 8 BUN 50 H Creatinine 4.51 H Est GFR ( Amer) 12 L Est GFR (Non-Af Amer) Glucose 91 Calcium 8.8 Ferritin 140.00 Total Bilirubin 0.4 AST 22 Alkaline Phosphatase 119 C-Reactive Protein Total Protein 7.8 Albumin 3.7 Urine Color Urine Appearance Urine pH Ur Specific [place] Urine Protein Urine Glucose (UA) Urine Ketones Urine Blood Urine Nitrite Ur Leukocyte Esterase Urine WBC (Auto) Urine RBC (Auto) 08/13/20 04:36 WBC RBC Hgb Hct MCV MCH MCHC RDW Plt Count Seg Neutrophils % Sodium 142.2 Potassium 4.3 Chloride 114 H Carbon Dioxide 22 Anion Gap 6 BUN 43 H Creatinine 3.46 H Est GFR ( Amer) 16 L Est GFR (Non-Af Amer) Glucose 78 Calcium 8.6 Ferritin Total Bilirubin 0.4 AST 20 Alkaline Phosphatase 89 C-Reactive Protein 8.0 Total Protein 6.9 Albumin 3.1 L Urine Color Urine Appearance Urine pH Ur Specific [place] Urine Protein Urine Glucose (UA) Urine Ketones Urine Blood Urine Nitrite Ur Leukocyte Esterase Urine WBC (Auto) Urine RBC (Auto) 08/13/20 04:36 Creatine Kinase 45 Assessment & Plan - Diagnosis (1) Acute kidney injury Is this a current diagnosis for this admission?: Yes Plan: The serum creatinine is improving with hydration (2) Bilateral hydronephrosis Is this a current diagnosis for this admission?: Yes Plan: Strong catheter is inserted for decompression of the urinary bladder and hopefully may resolve the bilateral hydronephrosis (3) Atonic urinary bladder Is this a current diagnosis for this admission?: Yes Plan: Patient started on Urecholine 25 mg 1 tablet 2 times a day (4) Urinary retention with incomplete bladder emptying Is this a current diagnosis for this admission?: Yes Plan: Patient will require indwelling urinary catheter for discharge home - Time Time Spent with patient: 35 or more minutes Level of Care: MEDICAL Medications reviewed and adjusted accordingly: Yes Anticipated discharge: Home Anticipated DC Timeframe: within 72 hours - Inpatient Certification Based on my medical assessment, after consideration of the patient's comorbidities, presenting symptoms, or acuity I expect that the services needed warrant INPATIENT care.: Yes I certify that my determination is in accordance with my understanding of Medicare's requirements for reasonable and necessary INPATIENT services [42 CFR 412.3e].: Yes
[2020-08-13] MEDS ORDERED: ACETAMINOPHEN 325 MG TABLET PO PRN (13:30)
[2020-08-13] MEDS: BETHANECHOL CHLORIDE 25 MG TABLET PO SCH ×2 (14:21→23:10)
[2020-08-13] MEDS: ASPIRIN 81 MG TABLET, ENT COATED PO SCH (14:21)
[2020-08-13 18:57] LABS: ALBUMIN 3.4 g/dL (3.5-5.0); ALKALINE PHOSPHATASE 93 U/L (38-126); ANION GAP 10 (5-19); ASPARTATE AMINO TRANSFERASE 21 U/L (14-36); BILIRUBIN,DIRECT 0.2 mg/dL (0.0-0.4); BILIRUBIN,TOTAL 0.4 mg/dL (0.2-1.3); BLOOD UREA NITROGEN 36 mg/dL (7-20); CALCIUM 8.7 mg/dL (8.4-10.2); CARBON DIOXIDE 22 mmol/L (22-30); CHLORIDE 111 mmol/L (98-107); GLUCOSE 135 mg/dL (75-110); POTASSIUM 4.3 mmol/L (3.6-5.0); TOTAL PROTEIN 7.3 g/dL (6.3-8.2)
[2020-08-13] MEDS: ESTROGENS,CONJUGATED 0.625 MG/1 GM 30 GM TUBE PV SCH (23:09)
[2020-08-14] MEDS: NORMAL SALINE 1000 ML 1,000 ML IV PRN ×3 (03:48→22:55)
[2020-08-14 05:23] LABS: ABSOLUTE BASOPHILS # (AUTO) 0.1 10^3/uL (0.0-0.2); ABSOLUTE EOSINOPHILS # (AUTO) 0.3 10^3/uL (0.0-0.6); ABSOLUTE LYMPHOCYTES (AUTO) 2.3 10^3/uL (0.5-4.7); ABSOLUTE MONOCYTES (AUTO) 0.9 10^3/uL (0.1-1.4); ABSOLUTE NEUT (AUTO) 2.9 10^3/uL (1.7-8.2); BASOPHILS % (AUTO) 1.1 % (0-2); EOSINOPHILS % (AUTO) 4.1 % (0-6); HEMATOCRIT 28.8 % (36.0-47.0); HEMOGLOBIN 9.8 g/dL (12.0-15.5); LYMPHOCYTES % (AUTO) 36.1 % (13-45); MEAN CORPUSCULAR HEMOGLOBIN 27.8 pg (27.0-33.4); MEAN CORPUSCULAR VOLUME 82 fl (80-97); MONOCYTES % (AUTO) 13.8 % (3-13); PLATELET COUNT 315 10^3/uL (150-450); RED BLOOD COUNT 3.53 10^6/uL (3.72-5.28); RED CELL DISTRIBUTION WIDTH 13.9 % (11.5-14.0); SEGMENTED NEUTROPHILS % (AUTO) 44.9 % (42-78); TOTAL CELLS COUNTED % (AUTO) 100 %; WHITE BLOOD COUNT 6.4 10^3/uL (4.0-10.5)
[2020-08-14 05:45] LABS: ALBUMIN 3.3 g/dL (3.5-5.0); ALKALINE PHOSPHATASE 89 U/L (38-126); ANION GAP 8 (5-19); ASPARTATE AMINO TRANSFERASE 20 U/L (14-36); BILIRUBIN,DIRECT 0.2 mg/dL (0.0-0.4); BILIRUBIN,TOTAL 0.4 mg/dL (0.2-1.3); BLOOD UREA NITROGEN 29 mg/dL (7-20); C-REACTIVE PROTEIN 6.8 mg/L (<10.0); CALCIUM 8.7 mg/dL (8.4-10.2); CARBON DIOXIDE 22 mmol/L (22-30); CHLORIDE 111 mmol/L (98-107); CREATINE KINASE 38 U/L (30-135); GLUCOSE 94 mg/dL (75-110); POTASSIUM 3.9 mmol/L (3.6-5.0); TOTAL PROTEIN 7.1 g/dL (6.3-8.2)
[2020-08-14] MEDS: HEPARIN SOD (PORCINE) 5,000 UNIT/ML 1 ML VIAL SUBCUT SCH ×3 (06:39→22:51)
[2020-08-14] MEDS ORDERED: INFLUENZA QUAD (6MOS+) 2020-21 VAC 0.5 ML SYR IM ONE (08:00)
[2020-08-14] MEDS: ASPIRIN 81 MG TABLET, ENT COATED PO SCH (09:54)
[2020-08-14] MEDS: BETHANECHOL CHLORIDE 25 MG TABLET PO SCH ×2 (09:54→22:52)
[2020-08-14] MEDS: LOSARTAN POTASSIUM 50 MG TABLET PO SCH (09:54)
[2020-08-14] MEDS: METOPROLOL SUCCINATE 50 MG TAB.SR.24H PO SCH (09:54)
--- NOTE | 2020-08-14 21:19 | PDOC PROGRESS REPORT ---
Subjective Date:: 08/14/20 Subjective:: Patient seen by the bedside,The kidney function is improving with hydration Reason For Visit: ACUTE RENAL FAILURE Physical Exam Vital Signs: Temp Pulse Resp BP Pulse Ox 98.4 F 65 20 143/76 H 100 08/14/20 15:36 08/14/20 15:36 08/14/20 15:36 08/14/20 15:36 08/14/20 15:36 Intake & Output 08/13/20 08/14/20 08/15/20 06:59 06:59 06:59 Intake Total 1900 3208 2086 Output Total 3558 6400 3000 Balance -6559 -4812 -914 Weight 95.2 kg 95.2 kg General appearance: PRESENT: no acute distress Eye exam: PRESENT: PERRLA Respiratory exam: PRESENT: clear to auscultation kuldip Cardiovascular exam: PRESENT: +S1, +S2 GI/Abdominal exam: PRESENT: soft Neurological exam: PRESENT: alert Results Laboratory Results: 08/14/20 04:29 08/14/20 04:29 08/14/20 08/14/20 04:29 04:29 WBC 6.4 RBC 3.53 L Hgb 9.8 L Hct 28.8 L MCV 82 MCH 27.8 MCHC 34.0 RDW 13.9 Plt Count 315 Seg Neutrophils % 44.9 Sodium 141.4 Potassium 3.9 Chloride 111 H Carbon Dioxide 22 Anion Gap 8 BUN 29 H Creatinine 2.33 H Est GFR ( Amer) 25 L Glucose 94 Calcium 8.7 Total Bilirubin 0.4 AST 20 Alkaline Phosphatase 89 C-Reactive Protein 6.8 Total Protein 7.1 Albumin 3.3 L 08/12/20 12:10 Clean Catch Midstream Urine Culture - Final Mixed Urogenital Radha 08/13/20 08/14/20 04:36 04:29 Creatine Kinase 45 38 Assessment & Plan - Diagnosis (1) Acute kidney injury Is this a current diagnosis for this admission?: Yes Plan: The serum creatinine is improving with hydration (2) Bilateral hydronephrosis Is this a current diagnosis for this admission?: Yes Plan: Strong catheter is inserted for decompression of the urinary bladder and hopefully may resolve the bilateral hydronephrosis (3) Atonic urinary bladder Is this a current diagnosis for this admission?: Yes Plan: Patient started on Urecholine 25 mg 1 tablet 2 times a day (4) Urinary retention with incomplete bladder emptying Is this a current diagnosis for this admission?: Yes Plan: Patient will require indwelling urinary catheter for discharge home - Time Time Spent with patient: 35 or more minutes Level of Care: MEDICAL Medications reviewed and adjusted accordingly: Yes Anticipated discharge: Home Anticipated DC Timeframe: within 72 hours
[2020-08-14] MEDS: EZETIMIBE 10 MG TABLET PO SCH (22:52)
[2020-08-14] MEDS: ESTROGENS,CONJUGATED 0.625 MG/1 GM 30 GM TUBE PV SCH (22:56)
[2020-08-15] MEDS: HEPARIN SOD (PORCINE) 5,000 UNIT/ML 1 ML VIAL SUBCUT SCH ×3 (06:02→22:24)
[2020-08-15 06:07] LABS: ABSOLUTE EOSINOPHILS # (AUTO) 0.3 10^3/uL (0.0-0.6); ABSOLUTE LYMPHOCYTES (AUTO) 2.6 10^3/uL (0.5-4.7); ABSOLUTE MONOCYTES (AUTO) 0.8 10^3/uL (0.1-1.4); HEMOGLOBIN 9.1 g/dL (12.0-15.5); TOTAL CELLS COUNTED % (AUTO) 100 %
[2020-08-15 06:15] LABS: ABSOLUTE NEUT (AUTO) 3.3 10^3/uL (1.7-8.2); BASOPHILS % (AUTO) 0.2 % (0-2); EOSINOPHILS % (AUTO) 3.9 % (0-6); HEMATOCRIT 27.2 % (36.0-47.0); LYMPHOCYTES % (AUTO) 37.2 % (13-45); MEAN CORPUSCULAR HEMOGLOBIN 27.7 pg (27.0-33.4); MEAN CORPUSCULAR HGB CONC 33.5 g/dL (32.0-36.0); MEAN CORPUSCULAR VOLUME 83 fl (80-97); MONOCYTES % (AUTO) 11.6 % (3-13); PLATELET COUNT 290 10^3/uL (150-450); RED BLOOD COUNT 3.29 10^6/uL (3.72-5.28); RED CELL DISTRIBUTION WIDTH 13.9 % (11.5-14.0); SEGMENTED NEUTROPHILS % (AUTO) 47.1 % (42-78); WHITE BLOOD COUNT 6.9 10^3/uL (4.0-10.5)
[2020-08-15 06:34] LABS: ALBUMIN 2.7 g/dL (3.5-5.0); ALKALINE PHOSPHATASE 96 U/L (38-126); ANION GAP 8 (5-19); ASPARTATE AMINO TRANSFERASE 19 U/L (14-36); BILIRUBIN,DIRECT 0.2 mg/dL (0.0-0.4); BILIRUBIN,TOTAL 0.3 mg/dL (0.2-1.3); CARBON DIOXIDE 20 mmol/L (22-30); CHLORIDE 112 mmol/L (98-107); CREATINE KINASE 33 U/L (30-135); GLUCOSE 83 mg/dL (75-110); POTASSIUM 3.4 mmol/L (3.6-5.0); TOTAL PROTEIN 6.2 g/dL (6.3-8.2)
[2020-08-15 06:42] LABS: BLOOD UREA NITROGEN 22 mg/dL (7-20); C-REACTIVE PROTEIN < 5.0 mg/L (<10.0)
[2020-08-15] MEDS: LOSARTAN POTASSIUM 50 MG TABLET PO SCH (09:14)
[2020-08-15] MEDS: ASPIRIN 81 MG TABLET, ENT COATED PO SCH (09:14)
[2020-08-15] MEDS: METOPROLOL SUCCINATE 50 MG TAB.SR.24H PO SCH (09:14)
[2020-08-15] MEDS: NORMAL SALINE 1000 ML 1,000 ML IV PRN ×2 (09:16→16:57)
[2020-08-15] MEDS ORDERED: CALCIUM GLUC IN NACL, ISO-OSM 1 GM/50 ML RTUPB IV ONE (12:45)
[2020-08-15] MEDS: BETHANECHOL CHLORIDE 25 MG TABLET PO SCH ×2 (13:35→22:24)
[2020-08-15] MEDS ORDERED: PHENAZOPYRIDINE HCL 200 MG TABLET PO SCH (18:00)
--- NOTE | 2020-08-15 18:13 | PDOC PROGRESS REPORT ---
Subjective Date:: 08/15/20 Subjective:: Patient seen by the bedside, the kidney function continues to improve, she compl ain of lower abdominal pain, probably due to bladder spasm. She was started on Urecholine Reason For Visit: ACUTE RENAL FAILURE Physical Exam Vital Signs: Temp Pulse Resp BP Pulse Ox 98.1 F 69 16 137/77 H 97 08/15/20 16:28 08/15/20 16:28 08/15/20 16:28 08/15/20 16:28 08/15/20 16:28 Intake & Output 08/14/20 08/15/20 08/16/20 06:59 06:59 06:59 Intake Total 3208 4486 2042 Output Total 6400 5300 950 Balance -3192 -814 1092 Weight 95.2 kg 95.2 kg General appearance: PRESENT: no acute distress Eye exam: PRESENT: PERRLA Respiratory exam: PRESENT: clear to auscultation kuldip Cardiovascular exam: PRESENT: +S1, +S2 GI/Abdominal exam: PRESENT: soft Neurological exam: PRESENT: alert Results Laboratory Results: 08/15/20 05:16 08/15/20 05:16 08/15/20 08/15/20 05:16 05:16 WBC 6.9 RBC 3.29 L Hgb 9.1 L Hct 27.2 L MCV 83 MCH 27.7 MCHC 33.5 RDW 13.9 Plt Count 290 Seg Neutrophils % 47.1 Sodium 139.9 Potassium 3.4 L Chloride 112 H Carbon Dioxide 20 L Anion Gap 8 BUN 22 H Creatinine 1.43 H Est GFR ( Amer) 44 L Glucose 83 Calcium 7.0 L* Total Bilirubin 0.3 AST 19 Alkaline Phosphatase 96 C-Reactive Protein < 5.0 Total Protein 6.2 L Albumin 2.7 L 08/13/20 08/14/20 08/15/20 04:36 04:29 05:16 Creatine Kinase 45 38 33 Assessment & Plan - Diagnosis (1) Acute kidney injury Is this a current diagnosis for this admission?: Yes Plan: The kidney function continues to improve with hydration, give Pyridium for abdominal pain (2) Bilateral hydronephrosis Is this a current diagnosis for this admission?: Yes Plan: Strong catheter is inserted for decompression of the urinary bladder and hopefully may resolve the bilateral hydronephrosis (3) Atonic urinary bladder Is this a current diagnosis for this admission?: Yes Plan: Patient started on Urecholine 25 mg 1 tablet 2 times a day (4) Urinary retention with incomplete bladder emptying Is this a current diagnosis for this admission?: Yes - Time Time Spent with patient: 25-34 minutes Level of Care: IMCU Anticipated discharge: Home - Inpatient Certification Based on my medical assessment, after consideration of the patient's comorbidities, presenting symptoms, or acuity I expect that the services needed warrant INPATIENT care.: Yes I certify that my determination is in accordance with my understanding of Medicare's requirements for reasonable and necessary INPATIENT services [42 CFR 412.3e].: Yes
[2020-08-15 19:47] LABS: ANION GAP 8 (5-19); BLOOD UREA NITROGEN 22 mg/dL (7-20); CALCIUM 8.6 mg/dL (8.4-10.2); CARBON DIOXIDE 25 mmol/L (22-30); CHLORIDE 104 mmol/L (98-107); GLUCOSE 141 mg/dL (75-110); POTASSIUM 3.9 mmol/L (3.6-5.0)
[2020-08-15] MEDS ORDERED: PHENAZOPYRIDINE HCL 200 MG TABLET ONE (21:44)
[2020-08-15] MEDS: EZETIMIBE 10 MG TABLET PO SCH (22:24)
[2020-08-16] MEDS: ESTROGENS,CONJUGATED 0.625 MG/1 GM 30 GM TUBE PV SCH (02:25)
[2020-08-16] MEDS: NORMAL SALINE 1000 ML 1,000 ML IV PRN ×2 (05:29→09:47)
[2020-08-16] MEDS: HEPARIN SOD (PORCINE) 5,000 UNIT/ML 1 ML VIAL SUBCUT SCH ×2 (05:30→16:01)
[2020-08-16] MEDS: PHENAZOPYRIDINE HCL 200 MG TABLET PO SCH ×2 (05:30→13:42)
[2020-08-16 06:03] LABS: ABSOLUTE BASOPHILS # (AUTO) 0.1 10^3/uL (0.0-0.2); ABSOLUTE EOSINOPHILS # (AUTO) 0.3 10^3/uL (0.0-0.6); ABSOLUTE LYMPHOCYTES (AUTO) 2.6 10^3/uL (0.5-4.7); ABSOLUTE MONOCYTES (AUTO) 0.9 10^3/uL (0.1-1.4); ABSOLUTE NEUT (AUTO) 3.2 10^3/uL (1.7-8.2); BASOPHILS % (AUTO) 1.1 % (0-2); EOSINOPHILS % (AUTO) 4.8 % (0-6); HEMATOCRIT 29.3 % (36.0-47.0); HEMOGLOBIN 9.8 g/dL (12.0-15.5); LYMPHOCYTES % (AUTO) 36.5 % (13-45); MEAN CORPUSCULAR HEMOGLOBIN 27.6 pg (27.0-33.4); MEAN CORPUSCULAR HGB CONC 33.5 g/dL (32.0-36.0); MEAN CORPUSCULAR VOLUME 83 fl (80-97); MONOCYTES % (AUTO) 12.4 % (3-13); PLATELET COUNT 308 10^3/uL (150-450); RED BLOOD COUNT 3.55 10^6/uL (3.72-5.28); SEGMENTED NEUTROPHILS % (AUTO) 45.2 % (42-78); TOTAL CELLS COUNTED % (AUTO) 100 %; WHITE BLOOD COUNT 7.2 10^3/uL (4.0-10.5)
[2020-08-16 06:30] LABS: ALBUMIN 3.2 g/dL (3.5-5.0); ALKALINE PHOSPHATASE 97 U/L (38-126); ANION GAP 5 (5-19); ASPARTATE AMINO TRANSFERASE 27 U/L (14-36); BILIRUBIN,TOTAL 0.5 mg/dL (0.2-1.3); BLOOD UREA NITROGEN 20 mg/dL (7-20); CALCIUM 8.2 mg/dL (8.4-10.2); CARBON DIOXIDE 25 mmol/L (22-30); CHLORIDE 107 mmol/L (98-107); CREATINE KINASE 32 U/L (30-135); GLUCOSE 91 mg/dL (75-110); POTASSIUM 3.8 mmol/L (3.6-5.0)
[2020-08-16 06:45] LABS: C-REACTIVE PROTEIN < 5.0 mg/L (<10.0)
[2020-08-16] MEDS: ONDANSETRON HCL INJ/PF 4 MG/2 ML SDV IV PRN ×2 (09:41→15:05)
[2020-08-16] MEDS: METOPROLOL SUCCINATE 50 MG TAB.SR.24H PO SCH (12:20)
[2020-08-16] MEDS: ASPIRIN 81 MG TABLET, ENT COATED PO SCH (12:21)
[2020-08-16] MEDS: LOSARTAN POTASSIUM 50 MG TABLET PO SCH (12:21)
[2020-08-16] MEDS: BETHANECHOL CHLORIDE 25 MG TABLET PO SCH (12:30)
[2020-08-16] MEDS ORDERED: INFLUENZA QUAD (6MOS+) 2020-21 VAC 0.5 ML SYR IM ONE (13:45)
[2020-08-16 14:16] VITALS: BP 146/85
[2020-08-16] MEDS ORDERED: ACETAMINOPHEN 325 MG TABLET ONE (14:47)
--- NOTE | 2020-08-16 14:49 | PDOC DISCHARGE SUMMARY ---
Impression - Admit/DC Date/PCP Admission Date/Primary Care Provider: 08/12/20 18:49 MIRYAM AGARWAL MD Discharge Date: 08/16/20 - Discharge Diagnosis (1) Acute kidney injury Is this a current diagnosis for this admission?: Yes (2) Bilateral hydronephrosis Is this a current diagnosis for this admission?: Yes (3) Atonic urinary bladder Is this a current diagnosis for this admission?: Yes (4) Urinary retention with incomplete bladder emptying Is this a current diagnosis for this admission?: Yes - Additional Information Discharge Diet: As Tolerated Discharge Activity: Activity As Tolerated, Balance Activity w/Rest Referrals: MIRYAM AGARWAL MD [Primary Care Provider] - Follow up as needed Prescriptions: Bethanechol Chloride [Urecholine 25 mg Tablet] 25 mg PO Q12 #180 tablet Home Medications: Aspirin [Ecotrin 81 mg EC Tablet] 81 mg PO DAILY 08/12/20 Docusate Sodium [Colace 100 mg Capsule] 100 mg PO QPM 08/12/20 Estrogens,Conjugated [Premarin Vaginal Cream (0.625 mg/gm) 30 gm] 1 applic PV QHS 08/12/20 Ezetimibe [Zetia 10 mg Tablet] 10 mg PO DAILY 08/12/20 Metoprolol Succinate [Toprol Xl 50 mg Tab.sr] 50 mg PO DAILY 08/12/20 Pantoprazole Sodium [Protonix [address] Tablet] 40 mg PO QAM 08/12/20 Telmisartan 40 mg PO DAILY 08/12/20 Acetaminophen [Tylenol 325 mg Tablet] 650 mg PO Q6HP PRN tablet 08/16/20 Bethanechol Chloride [Urecholine 25 mg Tablet] 25 mg PO Q12 #180 tablet 08/16/20 History of Present Illiness History of Present Illness: HOLA ADAMS is a 70 year old female, She has a history of recurrent UTI, she came to the office today for evaluation of lower abdominal pain, retention of fluids, urinary incontinence without sensory awareness. She was just treated for E. coli ESBL UTI with Bactrim couple of days ago. I requested for CT scan of the abdomen with contrast, serum creatinine was checked before the CT scan because of the contrast, serum creatinine was 4. The CAT scan was done and patient was referred to the ER. The CAT scan showed bilateral hydronephrosis and hydroureter distended urinary bladder.She has a history of cervical cancer that was treated with radiation therapy. 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 Hospital Course Hospital Course: Patient was admitted for the management of acute kidney injury due to obstruct lacho uropathy. She was treated with IV fluid, normal saline, and a urinary catheter was inserted for decompression of the bladder. On admission the serum creatinine was 4, the serum creatinine from today's lab is 1.4, She also was started on Urecholine a muscarinic receptor agonist to aid with contractility of the bladder. She will be discharged home today with indwelling catheter, home health agency will be set up to change catheter monthly, she will follow up in the office for blood work. Physical Exam Vital Signs: Temp Pulse Resp BP Pulse Ox 98.0 F 78 17 146/85 H 98 08/16/20 14:03 08/16/20 14:03 08/16/20 14:03 08/16/20 14:03 08/16/20 14:03 Intake & Output 08/15/20 08/16/20 08/17/20 06:59 06:59 06:59 Intake Total 4486 4402 754 Output Total 5300 4650 425 Balance -814 -248 329 Weight 95.2 kg 95.2 kg General appearance: PRESENT: no acute distress Eye exam: PRESENT: PERRLA Respiratory exam: PRESENT: clear to auscultation kuldip Cardiovascular exam: PRESENT: +S1, +S2 GI/Abdominal exam: PRESENT: soft Neurological exam: PRESENT: alert Results Laboratory Results: WBC 7.2 10^3/uL (4.0-10.5) 08/16/20 05:10 RBC 3.55 10^6/uL (3.72-5.28) L 08/16/20 05:10 Hgb 9.8 g/dL (12.0-15.5) L 08/16/20 05:10 Hct 29.3 % (36.0-47.0) L 08/16/20 05:10 MCV 83 fl (80-97) 08/16/20 05:10 MCH 27.6 pg (27.0-33.4) 08/16/20 05:10 MCHC 33.5 g/dL (32.0-36.0) 08/16/20 05:10 RDW 14.0 % (11.5-14.0) 08/16/20 05:10 Plt Count 308 10^3/uL (150-450) 08/16/20 05:10 Lymph % (Auto) 36.5 % (13-45) 08/16/20 05:10 [place] % (Auto) 12.4 % (3-13) 08/16/20 05:10 Eos % (Auto) 4.8 % (0-6) 08/16/20 05:10 Baso % (Auto) 1.1 % (0-2) 08/16/20 05:10 Absolute Neuts (auto) 3.2 10^3/uL (1.7-8.2) 08/16/20 05:10 Absolute Lymphs (auto) 2.6 10^3/uL (0.5-4.7) 08/16/20 05:10 Absolute Monos (auto) 0.9 10^3/uL (0.1-1.4) 08/16/20 05:10 Absolute Eos (auto) 0.3 10^3/uL (0.0-0.6) 08/16/20 05:10 Absolute Basos (auto) 0.1 10^3/uL (0.0-0.2) 08/16/20 05:10 Seg Neutrophils % 45.2 % (42-78) 08/16/20 05:10 PT 14.7 SEC (11.4-15.4) 08/12/20 22:40 INR 1.13 08/12/20 22:40 APTT 31.5 SEC (23.5-35.8) 08/12/20 22:40 Fibrinogen 469 mg/dL (209-497) 08/12/20 22:40 D-Dimer 0.66 ug/mL (0.00-0.50) H 08/12/20 22:40 Sodium 137.3 mmol/L (137-145) 08/16/20 05:10 Potassium 3.8 mmol/L (3.6-5.0) 08/16/20 05:10 Chloride 107 mmol/L (98-107) 08/16/20 05:10 Carbon Dioxide 25 mmol/L (22-30) 08/16/20 05:10 Anion Gap 5 (5-19) 08/16/20 05:10 BUN 20 mg/dL (7-20) 08/16/20 05:10 Creatinine 1.46 mg/dL (0.52-1.25) H 08/16/20 05:10 Est GFR ( Amer) 43 (>60) L 08/16/20 05:10 Est GFR (Non-Af Amer) Cancelled 08/12/20 15:41 Est GFR (MDRD) Non-Af 36 (>60) L 08/16/20 05:10 Glucose 91 mg/dL (75-110) 08/16/20 05:10 Calcium 8.2 mg/dL (8.4-10.2) L 08/16/20 05:10 Ferritin 140.00 ng/mL (11.1-264.0) 08/12/20 21:36 Total Bilirubin 0.5 mg/dL (0.2-1.3) 08/16/20 05:10 Direct Bilirubin 0.0 mg/dL (0.0-0.4) 08/16/20 05:10 Neonat Total Bilirubin Not Reportable 08/16/20 05:10 Neonat Direct Bilirubin Not Reportable 08/16/20 05:10 Neonat Indirect Bili Not Reportable 08/16/20 05:10 AST 27 U/L (14-36) 08/16/20 05:10 ALT 32 U/L (<35) 08/16/20 05:10 Alkaline Phosphatase 97 U/L (38-126) 08/16/20 05:10 Creatine Kinase 32 U/L (30-135) 08/16/20 05:10 C-Reactive Protein < 5.0 mg/L (<10.0) 08/16/20 05:10 Total Protein 7.0 g/dL (6.3-8.2) 08/16/20 05:10 Albumin 3.2 g/dL (3.5-5.0) L 08/16/20 05:10 EGFR Cancelled 08/12/20 15:41 Urine Color COLORLESS 08/12/20 12:10 Urine Appearance CLEAR 08/12/20 12:10 Urine pH 6.0 (5.0-9.0) 08/12/20 12:10 Ur Specific [place] 1.005 08/12/20 12:10 Urine Protein NEGATIVE mg/dL (NEGATIVE) 08/12/20 12:10 Urine Glucose (UA) NEGATIVE mg/dL (NEGATIVE) 08/12/20 12:10 Urine Ketones NEGATIVE mg/dL (NEGATIVE) 08/12/20 12:10 Urine Blood SMALL (NEGATIVE) H 08/12/20 12:10 Urine Nitrite NEGATIVE (NEGATIVE) 08/12/20 12:10 Urine Bilirubin NEGATIVE (NEGATIVE) 08/12/20 12:10 Urine Urobilinogen NEGATIVE mg/dL (<2.0) 08/12/20 12:10 Ur Leukocyte Esterase TRACE (NEGATIVE) H 08/12/20 12:10 Urine WBC (Auto) 6 /HPF 08/12/20 12:10 Urine RBC (Auto) 0 /HPF 08/12/20 12:10 Urine Bacteria (Auto) TRACE /HPF 08/12/20 12:10 Squamous Epi Cells Auto 1 /HPF 08/12/20 12:10 Urine Mucus (Auto) RARE /LPF 08/12/20 12:10 Urine Ascorbic Acid NEGATIVE (NEGATIVE) 08/12/20 12:10 Influenza A (RT-PCR) NEGATIVE (NEGATIVE) 08/12/20 22:50 Influenza B (RT-PCR) NEGATIVE (NEGATIVE) 08/12/20 22:50 RSV (RT-PCR) NEGATIVE (NEGATIVE) 08/12/20 22:50 SARS-CoV-2 Rap RNA(RT-PCR) NEGATIVE (NEGATIVE) 08/12/20 22:50 Stroke Is this a Stroke Patient?: No Acute Heart Failure Is this a Heart Failure Patient?: No
== END 2020-08-16 15:25 | disposition home health service (06) | DRG 699 ==
LOC: ER 14:38 → EH 18:49 → 4N 20:37
PROVIDERS: ADMIT Internal Medicine; ATTEND Internal Medicine
DX: N13.9 Obstructive and reflux uropathy, unspecified (principal); N17.9 Acute kidney failure, unspecified; Z16.12 Extended spectrum beta lactamase (ESBL) resistance; N13.39 Other hydronephrosis; N31.2 Flaccid neuropathic bladder, not elsewhere classified; R33.9 Retention of urine, unspecified; R33.8 Other retention of urine; B96.20 Unspecified Escherichia coli [E. coli] as the cause of diseases classified elsewhere; E78.5 Hyperlipidemia, unspecified; I10 Essential (primary) hypertension; Z20.822 Contact with and (suspected) exposure to COVID-19; N32.89 Other specified disorders of bladder; E78.00 Pure hypercholesterolemia, unspecified; Z79.899 Other long term (current) drug therapy; Z87.440 Personal history of urinary (tract) infections; Z85.41 Personal history of malignant neoplasm of cervix uteri; Z92.3 Personal history of irradiation; Z85.3 Personal history of malignant neoplasm of breast; Z90.10 Acquired absence of unspecified breast and nipple; Z90.722 Acquired absence of ovaries, bilateral; Z90.710 Acquired absence of both cervix and uterus; Z87.891 Personal history of nicotine dependence; Z79.82 Long term (current) use of aspirin; Z79.890 Hormone replacement therapy; Z88.6 Allergy status to analgesic agent; Z91.041 Radiographic dye allergy status
CPT/HCPCS: 36415; 51702; 74176; 80053; 81001; 82550; 82565; 82728; 85025; 85379; 85384; 85610; 85730; 86140; 87070; 87086; 90471; 90686; 99285; J0610; 0241U; C9803; G0008; J1644; J2405; J3490; J7030

== ENCOUNTER → 2020-08-12 | Outpatient (CLI) | payer MEDICARE, OTHER ==
--- NOTE | 2020-08-12 14:10 | RADIOLOGY REPORT (SQ) ---
EXAM DESCRIPTION: CT ABD/PELVIS NO ORAL OR IV IMAGES COMPLETED DATE/TIME: 08/12/2020 1:57 pm REASON FOR STUDY: (R10.30)LOWER ABDOMINAL PAIN, UNSPECIFIED R10.30 LOWER ABDOMINAL PAIN, UNSPECIFIE D COMPARISON: 05/30/2018 TECHNIQUE: CT scan of the abdomen and pelvis performed without intravenous or oral contrast. Images reviewed with lung, soft tissue, and bone windows. Reconstructed coronal and sagittal MPR images revi ewed. All images stored on PACS. All CT scanners at this facility use dose modulation, iterative reconstruction, and/or weight based d osing when appropriate to reduce radiation dose to as low as reasonably achievable (ALARA). [facility]: Dose Right [facility]: CareDose [facility]: Dose Right [facility]: Teradose 4D [facility]: [employer] RADIATION DOSE: mGy. LIMITATIONS: None. FINDINGS: LOWER CHEST: No significant findings. No nodules or infiltrates. NON-CONTRASTED LIVER, SPLEEN, ADRENALS: Evaluation limited by lack of IV contrast. No identified sign ificant masses. PANCREAS: No masses. No peripancreatic inflammatory changes. GALLBLADDER: No identified stones by CT criteria. No inflammatory changes to suggest cholecystitis. RIGHT KIDNEY AND URETER: No suspicious masses. Assessment limited by lack of IV contrast. No signif icant calcifications. Right-sided hydronephrosis and hydroureter. LEFT KIDNEY AND URETER: No suspicious masses. Assessment limited by lack of IV contrast. No signifi cant calcifications. Left-sided hydronephrosis and hydroureter. AORTA AND RETROPERITONEUM: No aneurysm. No retroperitoneal masses or adenopathy. BOWEL AND PERITONEAL CAVITY: No obvious masses or inflammatory changes. No free fluid. APPENDIX: Not visualized. PELVIS, BLADDER, AND ABDOMINAL WALL:Mild distended bladder. Slight thickening of the posterior bladd er wall. There are surgical clips adjacent to the posterior bladder wall. These are unchanged from prior exam. BONES: No significant findings. OTHER: No other significant finding. IMPRESSION: Bilateral hydronephrosis and hydroureter with mild bladder distention. No obstructing s tones are identified. Recommend retrograde pyelogram and cystostomy for further assessment. COMMENT: Quality ID # 436: Final reports with documentation of one or more dose reduction techniques (e.g., Automated exposure control, adjustment of the mA and/or kV according to patient size, use of iterative reconstruction technique) TECHNICAL DOCUMENTATION: JOB ID: [id number] 2010 [employer]- All Rights Reserved Reading location - IP/workstation name: [email or web address]
== END ==
LOC: RAD 13:12
PROVIDERS: ATTEND Internal Medicine
DX: N13.30 Unspecified hydronephrosis (principal); R10.30 Lower abdominal pain, unspecified
CPT/HCPCS: 74176; 82565